=== PATIENT | male | born 1955 | race Caucasian/White ===

== ENCOUNTER → 2017-03-07 | Outpatient (CLI) | payer MEDICARE, MEDICAID ==
[2017-03-07 12:32] LABS: ALBUMIN 3.9 G/DL (3.2-4.5); CREATININE SERUM 2.98 MG/DL (0.60-1.30); PHOSPHORUS 4.8 MG/DL (2.3-4.7); POTASSIUM 4.3 MMOL/L (3.6-5.0)
== END ==
LOC: LAB 11:24
PROVIDERS: ATTEND Internal Medicine Nephrology
DX: N17.9 Acute kidney failure, unspecified (principal); N18.3 Chronic kidney disease, stage 3 (moderate)
CPT/HCPCS: 36415; 80069; 82550; 82570; 84300

== ENCOUNTER → 2017-05-08 | Outpatient (CLI) | payer MEDICARE, MEDICAID | LOC: LAB 09:44 | PROVIDERS: ATTEND Family Medicine | DX: E11.9 Type 2 diabetes mellitus without complications (principal) ==

== ENCOUNTER → 2017-05-08 | Outpatient (CLI) | payer MEDICARE, MEDICAID ==
[2017-05-08 10:06] LABS: BASOPHILS % (AUTO) 0 % (0-10); EOSINOPHILS # (AUTO) 0.3 10^3/uL (0.0-0.3); EOSINOPHILS % (AUTO) 4 % (0-10); LYMPHOCYTES # (AUTO) 2.4 X 10^3 (1.0-4.0); LYMPHOCYTES % (AUTO) 29 % (12-44); MEAN CORPUSCULAR HEMOGLOBIN 32 PG (25-34); MEAN CORPUSCULAR HGB CONC 33 G/DL (32-36); MEAN CORPUSCULAR VOLUME 96 FL (80-99); MEAN PLATELET VOLUME 11.6 FL (7.4-10.4); MONOCYTES # (AUTO) 0.6 X 10^3 (0.0-1.0); MONOCYTES % (AUTO) 7 % (0-12); NEUTROPHILS % (AUTO) 60 % (42-75); PLATELET COUNT 173 10^3/uL (130-400); RED CELL DISTRIBUTION WIDTH 13.2 % (10.0-14.5); WHITE BLOOD COUNT 8.3 10^3/uL (4.3-11.0)
[2017-05-08 10:48] LABS: ALBUMIN 4.2 GM/DL (3.2-4.5); CALCIUM 9.9 MG/DL (8.5-10.1); CREATININE SERUM 3.25 MG/DL (0.60-1.30); PHOSPHORUS 4.4 MG/DL (2.3-4.7); POTASSIUM 4.4 MMOL/L (3.6-5.0)
== END ==
LOC: LAB 09:48
PROVIDERS: ATTEND Internal Medicine Nephrology
DX: D47.2 Monoclonal gammopathy (principal); R06.00 Dyspnea, unspecified; R80.9 Proteinuria, unspecified; E11.9 Type 2 diabetes mellitus without complications
CPT/HCPCS: 36415; 80069; 83036; 85025

== ENCOUNTER → 2017-07-16 | Outpatient (CLI) | payer MEDICARE, MEDICAID | LOC: LAB 13:14 | PROVIDERS: ATTEND Family Medicine | DX: E11.29 Type 2 diabetes mellitus with other diabetic kidney complication (principal) ==

== ENCOUNTER → 2017-07-16 | Outpatient (CLI) | payer MEDICARE, MEDICAID ==
[2017-07-16 13:59] LABS: BASOPHILS % (AUTO) 0 % (0-10); EOSINOPHILS # (AUTO) 0.2 10^3/uL (0.0-0.3); EOSINOPHILS % (AUTO) 3 % (0-10); LYMPHOCYTES # (AUTO) 1.6 X 10^3 (1.0-4.0); LYMPHOCYTES % (AUTO) 25 % (12-44); MEAN CORPUSCULAR HEMOGLOBIN 32 PG (25-34); MEAN CORPUSCULAR HGB CONC 33 G/DL (32-36); MEAN CORPUSCULAR VOLUME 97 FL (80-99); MEAN PLATELET VOLUME 10.9 FL (7.4-10.4); MONOCYTES # (AUTO) 0.4 X 10^3 (0.0-1.0); MONOCYTES % (AUTO) 6 % (0-12); NEUTROPHILS # (AUTO) 4.3 X 10^3 (1.8-7.8); NEUTROPHILS % (AUTO) 66 % (42-75); PLATELET COUNT 180 10^3/uL (130-400); RED BLOOD COUNT 3.84 10^6/uL (4.35-5.85); RED CELL DISTRIBUTION WIDTH 13.4 % (10.0-14.5); WHITE BLOOD COUNT 6.5 10^3/uL (4.3-11.0)
[2017-07-16 14:22] LABS: ALBUMIN 3.8 GM/DL (3.2-4.5); CALCIUM 8.5 MG/DL (8.5-10.1); CREATININE SERUM 2.83 MG/DL (0.60-1.30); PHOSPHORUS 4.5 MG/DL (2.3-4.7); POTASSIUM 4.3 MMOL/L (3.6-5.0)
[2017-07-17 06:43] LABS: CALCIUM PARA THYROID HORMONE 8.4 mg/dL (8.5-10.5)
== END ==
LOC: LAB 13:21
PROVIDERS: ATTEND Internal Medicine Nephrology
DX: I12.9 Hypertensive chronic kidney disease with stage 1 through stage 4 chronic kidney disease, or unspecified chronic kidney disease (principal); N18.4 Chronic kidney disease, stage 4 (severe); E11.29 Type 2 diabetes mellitus with other diabetic kidney complication; R60.9 Edema, unspecified
CPT/HCPCS: 36415; 80069; 82306; 83970; 84550; 85025

== ENCOUNTER → 2017-10-07 | Outpatient (CLI) | payer MEDICARE, MEDICAID ==
[2017-10-07 11:21] LABS: BASOPHILS % (AUTO) 0 % (0-10); EOSINOPHILS # (AUTO) 0.2 10^3/uL (0.0-0.3); EOSINOPHILS % (AUTO) 4 % (0-10); LYMPHOCYTES # (AUTO) 1.7 X 10^3 (1.0-4.0); LYMPHOCYTES % (AUTO) 29 % (12-44); MEAN CORPUSCULAR HEMOGLOBIN 32 PG (25-34); MEAN CORPUSCULAR HGB CONC 33 G/DL (32-36); MEAN CORPUSCULAR VOLUME 97 FL (80-99); MEAN PLATELET VOLUME 10.8 FL (7.4-10.4); MONOCYTES # (AUTO) 0.4 X 10^3 (0.0-1.0); MONOCYTES % (AUTO) 7 % (0-12); NEUTROPHILS # (AUTO) 3.5 X 10^3 (1.8-7.8); NEUTROPHILS % (AUTO) 60 % (42-75); PLATELET COUNT 162 10^3/uL (130-400); RED BLOOD COUNT 4.05 10^6/uL (4.35-5.85); RED CELL DISTRIBUTION WIDTH 12.8 % (10.0-14.5); WHITE BLOOD COUNT 5.8 10^3/uL (4.3-11.0)
[2017-10-07 11:26] LABS: BILIRUBIN,URINE NEGATIVE (NEGATIVE); KETONES,URINE NEGATIVE (NEGATIVE); LEUKOCYTE ESTERASE ,URINE NEGATIVE (NEGATIVE); NITRITE,URINE NEGATIVE (NEGATIVE); PH,URINE 6 (5-9); PROTEIN,URINE 3+ (NEGATIVE); UROBILINOGEN,URINE NORMAL (NORMAL)
[2017-10-07 11:34] LABS: SQUAMOUS EPITHELIAL CELL,UR RARE /HPF; WBC,URINE RARE /HPF
[2017-10-07 11:41] LABS: CALCIUM 9.3 MG/DL (8.5-10.1); CREATININE SERUM 3.14 MG/DL (0.60-1.30); MAGNESIUM 2.3 MG/DL (1.8-2.4); PHOSPHORUS 4.2 MG/DL (2.3-4.7); POTASSIUM 4.4 MMOL/L (3.6-5.0)
[2017-10-07 11:54] LABS: PROTEIN/CREATININE RATIO 5.13
== END ==
LOC: LAB 10:50
PROVIDERS: ATTEND Internal Medicine Nephrology
DX: E11.29 Type 2 diabetes mellitus with other diabetic kidney complication (principal); N18.4 Chronic kidney disease, stage 4 (severe); R79.89 Other specified abnormal findings of blood chemistry; E55.9 Vitamin D deficiency, unspecified
CPT/HCPCS: 36415; 80069; 81000; 82306; 82570; 83036; 83735; 83970; 84156; 85025

== ENCOUNTER → 2017-10-07 | Outpatient (CLI) | payer MEDICARE, MEDICAID | LOC: LAB 10:47 | PROVIDERS: ATTEND Family Medicine | DX: E11.29 Type 2 diabetes mellitus with other diabetic kidney complication (principal); N18.4 Chronic kidney disease, stage 4 (severe) ==

== ENCOUNTER → 2018-01-20 | Outpatient (CLI) | payer MEDICARE, MEDICAID | LOC: LAB 09:56 | PROVIDERS: ATTEND Family Medicine | DX: E10.9 Type 1 diabetes mellitus without complications (principal) | CPT/HCPCS: 36415; 83036 ==

== ENCOUNTER → 2018-01-20 | Outpatient (CLI) | payer MEDICARE, MEDICAID ==
[2018-01-20 10:16] LABS: HEMOGLOBIN 12.5 G/DL (13.3-17.7); MEAN PLATELET VOLUME 10.7 FL (7.4-10.4); RED BLOOD COUNT 3.89 10^6/uL (4.35-5.85); RED CELL DISTRIBUTION WIDTH 13.1 % (10.0-14.5); WHITE BLOOD COUNT 6.6 10^3/uL (4.3-11.0)
[2018-01-20 10:21] LABS: BILIRUBIN,URINE NEGATIVE (NEGATIVE); CLARITY,URINE CLEAR; COLOR,URINE YELLOW; GLUCOSE, URINE (UA) 1+ (NEGATIVE); KETONES,URINE NEGATIVE (NEGATIVE); LEUKOCYTE ESTERASE ,URINE NEGATIVE (NEGATIVE); NITRITE,URINE NEGATIVE (NEGATIVE); PH,URINE 6 (5-9); PROTEIN,URINE 3+ (NEGATIVE); UROBILINOGEN,URINE NORMAL (NORMAL)
[2018-01-20 10:36] LABS: ALBUMIN 4.2 GM/DL (3.2-4.5); CALCIUM 8.9 MG/DL (8.5-10.1); CREATININE SERUM 3.02 MG/DL (0.60-1.30); MAGNESIUM 2.4 MG/DL (1.8-2.4); PHOSPHORUS 4.6 MG/DL (2.3-4.7); POTASSIUM 4.1 MMOL/L (3.6-5.0)
[2018-01-20 10:38] LABS: BACTERIA,URINE NEGATIVE /HPF; RBC,URINE 0-2 /HPF; SQUAMOUS EPITHELIAL CELL,UR 0-2 /HPF; WBC,URINE RARE /HPF
== END ==
LOC: LAB 09:58
PROVIDERS: ATTEND Internal Medicine Nephrology
DX: N18.4 Chronic kidney disease, stage 4 (severe) (principal); N40.0 Benign prostatic hyperplasia without lower urinary tract symptoms; E11.29 Type 2 diabetes mellitus with other diabetic kidney complication; E55.9 Vitamin D deficiency, unspecified
CPT/HCPCS: 36415; 80069; 81000; 82570; 83735; 83970; 84156; 85027

== ENCOUNTER → 2018-05-20 | Outpatient (CLI) | payer MEDICARE, MEDICAID ==
[2018-05-20 12:50] LABS: BASOPHILS % (AUTO) 0 % (0-10); EOSINOPHILS # (AUTO) 0.2 10^3/uL (0.0-0.3); EOSINOPHILS % (AUTO) 3 % (0-10); HEMATOCRIT 36 % (40-54); HEMOGLOBIN 11.9 G/DL (13.3-17.7); LYMPHOCYTES # (AUTO) 2.1 X 10^3 (1.0-4.0); LYMPHOCYTES % (AUTO) 28 % (12-44); MEAN CORPUSCULAR HEMOGLOBIN 32 PG (25-34); MEAN CORPUSCULAR HGB CONC 33 G/DL (32-36); MEAN CORPUSCULAR VOLUME 96 FL (80-99); MEAN PLATELET VOLUME 10.7 FL (7.4-10.4); MONOCYTES # (AUTO) 0.5 X 10^3 (0.0-1.0); MONOCYTES % (AUTO) 7 % (0-12); NEUTROPHILS # (AUTO) 4.5 X 10^3 (1.8-7.8); NEUTROPHILS % (AUTO) 62 % (42-75); PLATELET COUNT 187 10^3/uL (130-400); RED CELL DISTRIBUTION WIDTH 13.1 % (10.0-14.5); WHITE BLOOD COUNT 7.3 10^3/uL (4.3-11.0)
[2018-05-20 13:15] LABS: ALBUMIN 3.9 GM/DL (3.2-4.5); BILIRUBIN,TOTAL 0.4 MG/DL (0.1-1.0); CALCIUM 8.6 MG/DL (8.5-10.1); CREATININE SERUM 3.14 MG/DL (0.60-1.30); POTASSIUM 4.4 MMOL/L (3.6-5.0); TOTAL PROTEIN 7.3 GM/DL (6.4-8.2)
[2018-05-25 15:46] LABS: IMMUNOFIX PATH REPORT NUMBER Complete (Complete)
== END ==
LOC: LAB 12:04
PROVIDERS: ATTEND Internal Medicine Hematology & Oncology
DX: D47.2 Monoclonal gammopathy (principal)
CPT/HCPCS: 36415; 80053; 82784; 83883; 85025; 86334

== ENCOUNTER → 2018-07-28 | Outpatient (CLI) | payer MEDICARE, MEDICAID | LOC: LAB 10:09 | PROVIDERS: ATTEND Nurse Practitioner | DX: E11.29 Type 2 diabetes mellitus with other diabetic kidney complication (principal) | CPT/HCPCS: 36415; 83036 ==

== ENCOUNTER → 2018-07-28 | Outpatient (CLI) | payer MEDICARE, MEDICAID ==
[2018-07-28 10:32] LABS: BILIRUBIN,URINE NEGATIVE (NEGATIVE); CLARITY,URINE CLEAR; COLOR,URINE YELLOW; GLUCOSE, URINE (UA) 1+ (NEGATIVE); KETONES,URINE NEGATIVE (NEGATIVE); LEUKOCYTE ESTERASE ,URINE NEGATIVE (NEGATIVE); NITRITE,URINE NEGATIVE (NEGATIVE); PH,URINE 6.5 (5-9); PROTEIN,URINE 4+ (NEGATIVE); UROBILINOGEN,URINE NORMAL (NORMAL)
[2018-07-28 10:43] LABS: BACTERIA,URINE TRACE /HPF; SQUAMOUS EPITHELIAL CELL,UR 0-2 /HPF
[2018-07-28 11:01] LABS: BASOPHILS % (AUTO) 0 % (0-10); EOSINOPHILS # (AUTO) 0.2 10^3/uL (0.0-0.3); EOSINOPHILS % (AUTO) 3 % (0-10); HEMATOCRIT 37 % (40-54); HEMOGLOBIN 12.2 G/DL (13.3-17.7); LYMPHOCYTES # (AUTO) 1.8 X 10^3 (1.0-4.0); LYMPHOCYTES % (AUTO) 28 % (12-44); MEAN CORPUSCULAR HEMOGLOBIN 32 PG (25-34); MEAN CORPUSCULAR HGB CONC 33 G/DL (32-36); MEAN CORPUSCULAR VOLUME 97 FL (80-99); MEAN PLATELET VOLUME 11.6 FL (7.4-10.4); MONOCYTES # (AUTO) 0.5 X 10^3 (0.0-1.0); MONOCYTES % (AUTO) 7 % (0-12); NEUTROPHILS # (AUTO) 3.9 X 10^3 (1.8-7.8); NEUTROPHILS % (AUTO) 62 % (42-75); PLATELET COUNT 167 10^3/uL (130-400); RED BLOOD COUNT 3.85 10^6/uL (4.35-5.85); WHITE BLOOD COUNT 6.3 10^3/uL (4.3-11.0)
[2018-07-28 11:21] LABS: ALBUMIN 4.2 GM/DL (3.2-4.5); CALCIUM 8.8 MG/DL (8.5-10.1); CREATININE SERUM 4.04 MG/DL (0.60-1.30); MAGNESIUM 2.8 MG/DL (1.8-2.4); PHOSPHORUS 4.8 MG/DL (2.3-4.7); POTASSIUM 5.1 MMOL/L (3.6-5.0)
== END ==
LOC: LAB 10:12
PROVIDERS: ATTEND Internal Medicine Nephrology
DX: E11.649 Type 2 diabetes mellitus with hypoglycemia without coma (principal); N18.4 Chronic kidney disease, stage 4 (severe); R42 Dizziness and giddiness
CPT/HCPCS: 36415; 80069; 81000; 82306; 82570; 83735; 83970; 84156; 85025

== ENCOUNTER → 2018-09-02 | Outpatient (CLI) | payer MEDICARE, MEDICAID ==
[2018-09-02 15:16] LABS: HEMOGLOBIN 11.6 G/DL (13.3-17.7); MEAN PLATELET VOLUME 11.4 FL (7.4-10.4); RED BLOOD COUNT 3.82 10^6/uL (4.35-5.85); RED CELL DISTRIBUTION WIDTH 12.7 % (10.0-14.5); WHITE BLOOD COUNT 6.9 10^3/uL (4.3-11.0)
[2018-09-02 15:20] LABS: BILIRUBIN,URINE NEGATIVE (NEGATIVE); CLARITY,URINE CLEAR; COLOR,URINE YELLOW; GLUCOSE, URINE (UA) 2+ (NEGATIVE); KETONES,URINE NEGATIVE (NEGATIVE); LEUKOCYTE ESTERASE ,URINE NEGATIVE (NEGATIVE); NITRITE,URINE NEGATIVE (NEGATIVE); PH,URINE 6.5 (5-9); PROTEIN,URINE 3+ (NEGATIVE); UROBILINOGEN,URINE NORMAL (NORMAL)
[2018-09-02 15:32] LABS: CALCIUM 9.2 MG/DL (8.5-10.1); CREATININE SERUM 4.06 MG/DL (0.60-1.30); MAGNESIUM 2.7 MG/DL (1.8-2.4); PHOSPHORUS 4.7 MG/DL (2.3-4.7); POTASSIUM 4.5 MMOL/L (3.6-5.0)
[2018-09-02 16:18] LABS: BACTERIA,URINE NEGATIVE /HPF; RBC,URINE RARE /HPF; WBC,URINE RARE /HPF
[2018-09-03 07:46] LABS: HEPATITIS C ANTIBODY C Non-Reactive (Non-Reactive)
== END ==
LOC: LAB 14:53
PROVIDERS: ATTEND Internal Medicine Nephrology
DX: R53.83 Other fatigue (principal); E11.649 Type 2 diabetes mellitus with hypoglycemia without coma; N18.5 Chronic kidney disease, stage 5; D47.2 Monoclonal gammopathy; E21.1 Secondary hyperparathyroidism, not elsewhere classified
CPT/HCPCS: 36415; 80069; 80074; 81000; 82570; 83735; 84156; 85027; 86704

== ENCOUNTER → 2019-12-15 | Outpatient (CLI) | payer MEDICARE, MEDICAID ==
[2019-12-15 09:56] LABS: CHOLESTEROL 134 MG/DL (< 200); HDL CHOLESTEROL 41 MG/DL (40-60); TRIGLYCERIDES 57 MG/DL (<150); VLDL CHOLESTEROL 11 MG/DL (5-40)
== END ==
LOC: LAB 09:18
PROVIDERS: ATTEND Nurse Practitioner
DX: E78.2 Mixed hyperlipidemia (principal); E11.22 Type 2 diabetes mellitus with diabetic chronic kidney disease
CPT/HCPCS: 36415; 80061; 83036

== ENCOUNTER → 2020-04-04 | Outpatient (CLI) | payer MEDICARE, MEDICAID ==
--- NOTE | 2020-04-04 14:00 | Diagnostic Imaging Report ---
EXAMINATION: PA and lateral chest at 1:44 PM. INDICATION: Shortness of breath, COPD, and cough. COMPARISON: There are no prior studies available for comparison. FINDINGS: The heart size is at the upper limits of normal. There are coarse perihilar markings bilaterally. These findings are more likely to be chronic in nature than due to pneumonia or pulmonary edema. Even so, if previous exams are available, they would be helpful for comparison. On the PA view, there is a small 5 mm area of increased density along the periphery of the left upper lung. There is no corresponding abnormality seen on the lateral view and this finding may merely be secondary to superimposition. The possibility that this is a parenchymal lung nodule should also be considered. There is no significant pleural effusion identified. The mediastinum is not widened. The osseous structures are intact. IMPRESSION: 1. The coarse perihilar markings are more likely to be chronic in nature than due to an acute abnormality; however, if there are no prior exams available for comparison, then a followup PA and lateral chest would be recommended. 2. The small density along the periphery of the left upper lung could also be further evaluated either by comparison to prior exams or a followup study. Dictated by: Dictated on workstation # [id number]
== END ==
LOC: RAD 13:18
PROVIDERS: ATTEND Nurse Practitioner
DX: J44.1 Chronic obstructive pulmonary disease with (acute) exacerbation (principal); G47.09 Other insomnia; J98.4 Other disorders of lung
CPT/HCPCS: 71046

== ENCOUNTER → 2020-04-12 | Outpatient (CLI) | payer MEDICARE, MEDICAID ==
--- NOTE | 2020-04-12 11:06 | Diagnostic Imaging Report ---
INDICATION: COPD and left lung nodule. TIME OF EXAM: 11:05 AM. COMPARISON: 04/04/2020. FINDINGS: The heart size is stable. The left upper lobe nodule is stable. No infiltrates are detected. There is some scarring or atelectasis in the left base near the costophrenic angle. There is no effusion. There is no pneumothorax. IMPRESSION: 1. Left basilar subsegmental atelectasis or scarring. 2. Left upper lobe pulmonary nodule, perhaps a granuloma. Serial chest radiographs with repeat study in 6 months is recommended to confirm stability. Dictated by: Dictated on workstation # [id number]
== END ==
LOC: LAB 10:45
PROVIDERS: ATTEND Nurse Practitioner
DX: J44.1 Chronic obstructive pulmonary disease with (acute) exacerbation (principal); R91.1 Solitary pulmonary nodule
CPT/HCPCS: 71046

== ENCOUNTER → 2020-04-24 | Outpatient (CLI) | payer MEDICARE, MEDICAID ==
--- NOTE | 2020-04-24 13:06 | Diagnostic Imaging Report ---
EXAMINATION: CT Chest without contrast. TECHNIQUE: Multiple contiguous axial images were obtained through the chest without the use of intravenous contrast. All CT scans use one or more of the following dose optimizing techniques: automated exposure control, MA and/or KvP adjustment based on a patient size and exam type, or iterative reconstruction. HISTORY: Pulmonary nodule. COMPARISON: Radiograph dated 04/12/2020. FINDINGS: There is no edema or pneumonia. No pleural effusion. No pneumothorax. No suspicious nodules. The nodule seen on radiography is a calcified granuloma in the left upper lobe. There is bronchial wall thickening in the left lower lobe with volume loss suggestive of bronchitis. Heart size is normal. There are moderate coronary artery calcifications. No pericardial effusion. Aorta is normal in caliber. There is no axillary or supraclavicular lymphadenopathy. There is no mediastinal lymphadenopathy. Limited views of the upper abdomen are unremarkable. There are no suspicious osseus lesions. IMPRESSION: 1. The left upper lobe nodule is calcified granuloma, a benign finding for which no further follow-up is required. 2. Bronchial wall thickening in the left lower lobe is suggestive of bronchitis. Dictated by: Dictated on workstation # [id number]
== END ==
LOC: RAD 11:56
PROVIDERS: ATTEND Nurse Practitioner
DX: J84.10 Pulmonary fibrosis, unspecified (principal); J98.09 Other diseases of bronchus, not elsewhere classified; R91.1 Solitary pulmonary nodule
CPT/HCPCS: 71250

== ENCOUNTER → 2020-08-10 | Outpatient (CLI) | payer MEDICARE, MEDICAID ==
--- NOTE | 2020-08-10 13:51 | Diagnostic Imaging Report ---
INDICATION: Low back pain and right hip pain. TIME OF EXAM: 12:39 PM 2 views right hip were obtained. The femoral acetabular alignment is normal. Joint spaces well-maintained. Femoral head and neck are intact. No fractures are seen. IMPRESSION: No acute bony abnormality is detected. Dictated by: Dictated on workstation # [id number]
--- NOTE | 2020-08-10 13:58 | Diagnostic Imaging Report ---
INDICATION: Chronic low back pain. TIME OF EXAM: 12:41 PM AP, lateral and both oblique views of the lumbar spine were obtained. Curvature and alignment are normal. Vertebral body heights are well-maintained. No acute compression fracture is seen. There is multilevel degenerative disc disease with variable disc space narrowing and marginal spurring. There is multilevel facet arthropathy. No spondylolysis or spondylolisthesis is seen. Aorta is heavily calcified. IMPRESSION: Lumbar spondylosis. No acute bony abnormality is detected. Dictated by: Dictated on workstation # [id number]
== END ==
LOC: RAD 12:06
PROVIDERS: ATTEND Nurse Practitioner
DX: M47.816 Spondylosis without myelopathy or radiculopathy, lumbar region (principal)
CPT/HCPCS: 72110; 73502

== ENCOUNTER → 2020-09-21 | Outpatient (CLI) | payer MEDICARE, MEDICAID ==
--- NOTE | 2020-09-21 15:04 | Diagnostic Imaging Report ---
PROCEDURE: US Venous Lower Ext Kain. TECHNIQUE: Multiple real-time grayscale images were obtained over the lower extremities in various projections, bilaterally. Additional duplex Doppler and color Doppler images were also obtained. INDICATION: Bilateral lower extremity pain and swelling. FINDINGS: There is no evidence of right or left lower extremity DVT. Both lower extremity deep venous systems show normal compressibility with normal response to augmentation and Valsalva. No fluid collection or mass is detected. IMPRESSION: No evidence of right or left lower extremity DVT. Dictated by: Dictated on workstation # [id number]
--- NOTE | 2020-09-21 15:42 | Diagnostic Imaging Report ---
INDICATION: Restless leg syndrome. EXAMINATION: Ankle-brachial indices. FINDINGS: Pressure was recorded in the brachial artery and in the posterior tibial and dorsalis pedis of both ankles. CHELSEA on the right is greater than 1. CHELSEA on the left is greater than 1. IMPRESSION: Normal ankle-brachial indices. Dictated by: Dictated on workstation # [id number]
== END ==
LOC: CARD 12:48
PROVIDERS: ATTEND Nurse Practitioner
DX: G25.81 Restless legs syndrome (principal); R60.0 Localized edema
CPT/HCPCS: 93306; 93922; 93970

== ENCOUNTER 2020-11-08 12:37 | Emergency (ER) | payer MEDICARE, MEDICAID ==
[~2020-11-08] VITALS: Ht 175 cm; Wt 127.0 kg
[2020-11-08 12:52] LABS: BASOPHILS % (AUTO) 0 % (0-10); EOSINOPHILS # (AUTO) 0.2 10^3/uL (0.0-0.3); EOSINOPHILS % (AUTO) 3 % (0-10); HEMATOCRIT 31 % (40-54); HEMOGLOBIN 9.7 g/dL (13.3-17.7); LYMPHOCYTES # (AUTO) 1.7 10^3/uL (1.0-4.0); LYMPHOCYTES % (AUTO) 23 % (12-44); MEAN CORPUSCULAR HEMOGLOBIN 32 pg (25-34); MEAN CORPUSCULAR HGB CONC 32 g/dL (32-36); MEAN CORPUSCULAR VOLUME 102 fL (80-99); MEAN PLATELET VOLUME 11.5 fL (9.0-12.2); MONOCYTES # (AUTO) 0.6 10^3/uL (0.0-1.0); MONOCYTES % (AUTO) 8 % (0-12); NEUTROPHILS % (AUTO) 66 % (42-75); PLATELET COUNT 155 10^3/uL (130-400); WHITE BLOOD COUNT 7.5 10^3/uL (4.3-11.0)
--- NOTE | 2020-11-08 13:03 | ED Cardiac General ---
History of Present Illness General Chief Complaint: Cardiac/General Problems Stated Complaint: AFIB,FATIGUE Source: patient Exam Limitations: no limitations History of Present Illness Date Seen by Provider: Nov 08, 2020 Time Seen by Provider: 13:03 Initial Comments This is a 65 yo male who presents to the ER via EMS with report of new onset a- fib, rate controlled per his PCP office. Upon arrival he had no complaints other than fatigue. States he has had some low BP readings at home of 120's/60's but no other issues. Denies chest pain, cough, shortness of breath, nausea/vomit ing/diarrhea, or abdominal pain. States he does peritoneal dialysis 3x a day at home and had to miss his first treatment to come ER. Allergies and Home Medications Allergies Coded Allergies: cephalexin (Verified Allergy, Unknown, hives, 11/08/20) Home Medications Apixaban 5 Mg Tablet, 5 MG PO BID Prescribed by: JAIDEN ANDERSON on 11/08/20 1422 Patient Home Medication List Home Medication List Reviewed: Yes Review of Systems Review of Systems Constitutional: No dizziness, No fever; malaise; No weakness EENTM: No Symptoms Reported Respiratory: Cough (chronic) Cardiovascular: No Symptoms Reported Gastrointestinal: No Symptoms Reported Genitourinary: No Symptoms Reported Musculoskeletal: no symptoms reported Skin: no symptoms reported Psychiatric/Neurological: No Symptoms Reported Endocrine: No Symptoms Reported Hematologic/Lymphatic: No Symptoms Reported Physical Exam Vital Signs Vital Signs - First Documented 11/08/20 12:39 Temp 36.2 Pulse 94 Resp 20 B/P (MAP) 156/102 (120) Pulse Ox 100 O2 Delivery Nasal Cannula O2 Flow Rate 2.00 Capillary Refill : NONE Height, Weight, BMI Height: '" Weight: lbs. oz. kg; BMI Method: General Appearance: No Apparent Distress, WD/WN HEENT: PERRL/EOMI, Pharynx Normal, Moist Mucous Membranes Neck: Full Range of Motion, Normal Inspection, Supple Respiratory: Chest Non Tender, Lungs Clear, Normal Breath Sounds, No Accessory Muscle Use Cardiovascular: No No Gallop, No No JVD; Normal Peripheral Pulses, Irregularly Irregular Gastrointestinal: Normal Bowel Sounds, Non Tender, Soft Extremity: Normal Capillary Refill, Normal Inspection, Normal Range of Motion, Pedal Edema (2+ BLE ) Neurologic/Psychiatric: Alert, Oriented x3, No Motor/Sensory Deficits, Normal Mood/Affect Skin: Normal Color, Warm/Dry Progress/Results/Core Measures Results/Orders Lab Results Laboratory Tests Test 11/08/20 12:45 Range/Units White Blood Count 7.5 4.3-11.0 10^3/uL Red Blood Count 3.01 L 4.30-5.52 10^6/uL Hemoglobin 9.7 L 13.3-17.7 g/dL Hematocrit 31 L 40-54 % Mean Corpuscular Volume 102 H 80-99 fL Mean Corpuscular Hemoglobin 32 25-34 pg Mean Corpuscular Hemoglobin Concent 32 32-36 g/dL Red Cell Distribution Width 12.6 10.0-14.5 % Platelet Count 155 130-400 10^3/uL Mean Platelet Volume 11.5 9.0-12.2 fL Immature Granulocyte % (Auto) 0 % Neutrophils (%) (Auto) 66 42-75 % Lymphocytes (%) (Auto) 23 12-44 % Monocytes (%) (Auto) 8 0-12 % Eosinophils (%) (Auto) 3 0-10 % Basophils (%) (Auto) 0 0-10 % Neutrophils # (Auto) 5.0 1.8-7.8 10^3/uL Lymphocytes # (Auto) 1.7 1.0-4.0 10^3/uL Monocytes # (Auto) 0.6 0.0-1.0 10^3/uL Eosinophils # (Auto) 0.2 0.0-0.3 10^3/uL Basophils # (Auto) 0.0 0.0-0.1 10^3/uL Immature Granulocyte # (Auto) 0.0 0.0-0.1 10^3/uL Sodium Level 139 135-145 MMOL/L Potassium Level 4.0 3.6-5.0 MMOL/L Chloride Level 100 98-107 MMOL/L Carbon Dioxide Level 32 21-32 MMOL/L Anion Gap 7 5-14 MMOL/L Blood Urea Nitrogen 92 H 7-18 MG/DL Creatinine 6.51 H 0.60-1.30 MG/DL Estimat Glomerular Filtration Rate 9 BUN/Creatinine Ratio 14 Glucose Level 73 70-105 MG/DL Calcium Level 8.1 L 8.5-10.1 MG/DL Corrected Calcium 8.4 L 8.5-10.1 MG/DL Magnesium Level 2.5 H 1.6-2.4 MG/DL Total Bilirubin 0.3 0.1-1.0 MG/DL Aspartate Amino Transf (AST/SGOT) 15 5-34 U/L Alanine Aminotransferase (ALT/SGPT) 17 0-55 U/L Alkaline Phosphatase 67 40-136 U/L Total Protein 7.1 6.4-8.2 GM/DL Albumin 3.6 3.2-4.5 GM/DL TSH [place] Testing 2.52 0.35-4.94 UIU/ML Vital Signs/I&O 11/08/20 11/08/20 12:39 14:50 Temp 36.2 Pulse 94 93 Resp 20 20 B/P (MAP) 156/102 (120) 151/88 (120) Pulse Ox 100 100 O2 Delivery Nasal Cannula O2 Flow Rate 2.00 2.00 Progress Progress Note : Progress Note New onset A-fib, rate controlled at 84 bpm. Only symptom reported is fatigue. Discussed case with Dr. 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 Discussed with RN at [facility], and reported assistant offset press operator ok with starting Eliquis 5mg PO BID. Patient to have follow up with Dr. Gonzales on Friday11/10/20. Reviewed discharge plan with him and he is agreeable with plan. Initial ECG Impression Date: Nov 08, 2020 Initial ECG Impression Time: 12:48 Initial ECG Rate: 84 Initial ECG Rhythm: A Fib/Flutter Departure Communication (Admissions) Time/Spoke to Consulting Phy: 14:[address] 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 Called [facility] and spoke to RN regarding adding Eliquis 5mg BID. Returned call, stating assistant offset press operator was ok with starting Eliquis at this dose. Impression Primary Impression: New onset a-fib Disposition: 01 HOME, SELF-CARE Condition: Stable/Unchanged Departure-Patient Inst. Decision time for Depature: 14:10 Referrals: [facility] Primary Care Physician CHARLIE SALES APRN (Family) Primary Care Physician Patient Instructions: Atrial Fibrillation Add. Discharge Instructions: Plan: 1. Discharge home. 2. Continue your dialysis as previously directed. 3. Take Eliquis 5mg by mouth twice a day. 4. Follow up with Dr. Gonzales on FridayNovember 10 at 12:45pm. His office is located right next to the hospital. 5. Return to ER for new or concerning symptoms. All discharge instructions reviewed with patient and/or family. Voiced understanding. Scripts Apixaban (Eliquis) 5 Mg Tablet 5 MG PO BID for 30 Days, #60 TAB 0 Refills Prov: JAIDEN ANDERSON NIGHT SUPERVISOR 11/08/20 Copy Copies To 1: AFSHAN GONZALES MD FACP FACC CCDS JAIDEN ANDERSON NIGHT SUPERVISOR Nov 08, 2020 13:03
[2020-11-08 13:08] LABS: ALBUMIN 3.6 GM/DL (3.2-4.5)
[2020-11-08 13:09] LABS: CALCIUM 8.1 MG/DL (8.5-10.1)
[2020-11-08 13:11] LABS: TOTAL PROTEIN 7.1 GM/DL (6.4-8.2)
--- NOTE | 2020-11-08 13:11 | ED Cardiac General ---
History of Present Illness General Chief Complaint: Cardiac/General Problems Stated Complaint: AFIB,FATIGUE History of Present Illness Date Seen by Provider: Nov 08, 2020 Time Seen by Provider: 13:50 Initial Comments 65 y/o M presents to Emergency Department by EMS. Pt states Dr. Pierre at [facility] sent him over because pt was in A. Fib and his bp was fluctuating up and down. Pt states he can't walk as far before needing to catch his breath and his legs begin to hurt. Previous pt was able to walk around [employer] without effort. Pt denies a history of A. Fib. Pt admits to his bp dropping before but would always come back up. Pt denies previous occurrences of 2 drops in bp. Pt has mild leg swelling and a cough but denies pain, lightheadedness, troubles with vision or hearing, or cough. Pt has mild leg swelling. Pt had a sonogram of his heart a couple of months ago. BP taken in ED is 128/105 but has been fluctuating. PMHx: CAD, HTN, DM, CKD, edema, COPD, chemical lungs PSHx: lung biopsy, gallbladder removal FamHx: cancer, DM, hear attacks, fibromyalgia Meds: see list allergy to meds: keflex (hives), bp medication unspecified (leg swelling) (RC SINGH STUDENT) Allergies and Home Medications Allergies Coded Allergies: cephalexin (Verified Allergy, Unknown, hives, 11/08/20) Review of Systems Review of Systems Constitutional: No fever; weakness EENTM: No Blurred Vision, No Double Vision, No Ear Pain Respiratory: Cough Cardiovascular: Denies Chest Pain; Edema; Denies Lightheadedness Gastrointestinal: Denies Abdominal Pain (RC SINGH STUDENT) Past Scqpykm-Jgolvu-Tqdodi Hx Patient Social History Alcohol Use: Denies Use (RC SINGH STUDENT) Physical Exam Vital Signs Vital Signs - First Documented 11/08/20 12:39 Temp 36.2 Pulse 94 Resp 20 B/P (MAP) 156/102 (120) Pulse Ox 100 O2 Delivery Nasal Cannula O2 Flow Rate 2.00 () Vital Signs Capillary Refill : NONE (RC SINGH STUDENT) Height, Weight, BMI Height: '" Weight: lbs. oz. kg; BMI Method: (RC SINGH MED STUDENT) Progress/Results/Core Measures Results/Orders Lab Results Laboratory Tests Test 11/08/20 12:45 Range/Units White Blood Count 7.5 4.3-11.0 10^3/uL Red Blood Count 3.01 L 4.30-5.52 10^6/uL Hemoglobin 9.7 L 13.3-17.7 g/dL Hematocrit 31 L 40-54 % Mean Corpuscular Volume 102 H 80-99 fL Mean Corpuscular Hemoglobin 32 25-34 pg Mean Corpuscular Hemoglobin Concent 32 32-36 g/dL Red Cell Distribution Width 12.6 10.0-14.5 % Platelet Count 155 130-400 10^3/uL Mean Platelet Volume 11.5 9.0-12.2 fL Immature Granulocyte % (Auto) 0 % Neutrophils (%) (Auto) 66 42-75 % Lymphocytes (%) (Auto) 23 12-44 % Monocytes (%) (Auto) 8 0-12 % Eosinophils (%) (Auto) 3 0-10 % Basophils (%) (Auto) 0 0-10 % Neutrophils # (Auto) 5.0 1.8-7.8 10^3/uL Lymphocytes # (Auto) 1.7 1.0-4.0 10^3/uL Monocytes # (Auto) 0.6 0.0-1.0 10^3/uL Eosinophils # (Auto) 0.2 0.0-0.3 10^3/uL Basophils # (Auto) 0.0 0.0-0.1 10^3/uL Immature Granulocyte # (Auto) 0.0 0.0-0.1 10^3/uL Sodium Level 139 135-145 MMOL/L Potassium Level 4.0 3.6-5.0 MMOL/L Chloride Level 100 98-107 MMOL/L Carbon Dioxide Level 32 21-32 MMOL/L Anion Gap 7 5-14 MMOL/L Blood Urea Nitrogen 92 H 7-18 MG/DL Creatinine 6.51 H 0.60-1.30 MG/DL Estimat Glomerular Filtration Rate 9 BUN/Creatinine Ratio 14 Glucose Level 73 70-105 MG/DL Calcium Level 8.1 L 8.5-10.1 MG/DL Corrected Calcium 8.4 L 8.5-10.1 MG/DL Magnesium Level 2.5 H 1.6-2.4 MG/DL Total Bilirubin 0.3 0.1-1.0 MG/DL Aspartate Amino Transf (AST/SGOT) 15 5-34 U/L Alanine Aminotransferase (ALT/SGPT) 17 0-55 U/L Alkaline Phosphatase 67 40-136 U/L Total Protein 7.1 6.4-8.2 GM/DL Albumin 3.6 3.2-4.5 GM/DL (ANTONINO CAMARILLO) Vital Signs/I&O 11/08/20 12:39 Temp 36.2 Pulse 94 Resp 20 B/P (MAP) 156/102 (120) Pulse Ox 100 O2 Delivery Nasal Cannula O2 Flow Rate 2.00 (ANTONINO CAMARILLO) Departure Departure-Patient Inst. [facility]) Primary Care Physician CHARLIE PIERRE APRN (Family) Primary Care Physician RC SINGH MED STUDENT Nov 08, 2020 13:11 ANTONINO CAMARILLO Nov 08, 2020 13:28
[2020-11-08 13:12] LABS: BILIRUBIN,TOTAL 0.3 MG/DL (0.1-1.0)
[2020-11-08 13:14] LABS: CREATININE SERUM 6.51 MG/DL (0.60-1.30)
[2020-11-08 13:17] LABS: MAGNESIUM 2.5 MG/DL (1.6-2.4)
[2020-11-08 13:38] LABS: TSH (THYROID ANALYZER) 2.52 UIU/ML (0.35-4.94)
[2020-11-08] MEDS ORDERED: APIX5TAB PO (14:22)
--- NOTE | 2020-11-08 14:45 | NUR ---
SPOKE [facility] TO CHECK FOR PT COAT AND HAT. NONE LEFT W PT IN ED. PT AWAITING RIDE HOME W BROTHER.
[2020-11-08 14:50] VITALS: BP 151/88
== END 2020-11-08 15:22 | disposition home or self-care (01) ==
LOC: EDUNIT# 12:37 → ER 12:40
DX: I48.91 Unspecified atrial fibrillation (principal); Z88.1 Allergy status to other antibiotic agents; Z99.2 Dependence on renal dialysis
CPT/HCPCS: 36415; 80053; 83735; 84443; 85025; 93005; 93041

== ENCOUNTER → 2020-11-15 | Outpatient (CLI) | payer MEDICARE, MEDICAID ==
[~2020-11-15] MED LIST: APIX5TAB PO
== END ==
LOC: CARD 10:51
PROVIDERS: ATTEND Internal Medicine Cardiovascular Disease
DX: I48.0 Paroxysmal atrial fibrillation (principal)
CPT/HCPCS: 93225; 93226

== ENCOUNTER → 2020-11-17 | Outpatient (CLI) | payer MEDICARE, MEDICAID ==
[~2020-11-17] VITALS: Ht 175 cm; Wt 128.0 kg
[~2020-11-17] MED LIST changes: +CATHETER FLUSH 10 ML SYR IV PRN; +REGADENOSON 0.4 MG/5 ML SYR (LEXISCAN) IV ONE
[2020-11-17 08:56] VITALS: BP 149/77
== END ==
LOC: CARD 08:15
PROVIDERS: ATTEND Internal Medicine Cardiovascular Disease
DX: R06.09 Other forms of dyspnea (principal)
CPT/HCPCS: 78452; A9502

== ENCOUNTER 2021-11-05 11:11 | Emergency (ER) | payer MEDICARE, MEDICAID ==
[~2021-11-05] VITALS: Ht 177 cm; Wt 158.0 kg
[~2021-11-05 11:11] MED LIST changes: -CATHETER FLUSH 10 ML SYR IV PRN; -REGADENOSON 0.4 MG/5 ML SYR (LEXISCAN) IV ONE
[2021-11-05] MEDS ORDERED: EPINEPHrine 0.1 MG/ML 10 ML (HOSPIRA) SYR INJ ONE (11:12)
[2021-11-05] MEDS ORDERED: CATHETER FLUSH 10 ML SYR IV ONE (11:12)
[2021-11-05] MEDS ORDERED: SODIUM BICARB 8.4% 50 MEQ/50 ML (ABBOTT) SYR INJ ONE (11:12)
[2021-11-05] MEDS ORDERED: CALCIUM CHLORIDE 1 GM/10 ML (IMS) SYR INJ ONE (11:12)
--- NOTE | 2021-11-05 11:40 | ED CPR ---
HPI-CPR General Chief Complaint: Code Blue Stated Complaint: CODE Nursing Triage Note: Pt here from [facility], CPR in progress, combi tube in place. IO in place L lower leg. Pt was reportedly heading to dialysis this morning when he collapsed in driveway. 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 EMS reports receiving initial call at 1003. CPR started by fire upon arrival to scene. Abrasions noted to L side of face, bleeding controlled. Source of Information: EMS Exam Limitations: Physical Impairments History of Present Illness Date Seen by Provider: Nov 05, 2021 Time Seen by Provider: 11:12 Initial Comments Patient is a 66-year-old male who presents to the emergency department "CODE BLUE" by EMS. He resides in [facility]. Reportedly the patient was going out to his car to go to dialysis this morning when he collapsed in his driveway. It appears as though he landed on the left side of his face. EMS reports that the fire department was less than 2 blocks away. Relative short amount of time before CPR. Patient had no pulse no spontaneous respirations upon EMS arrival. Airway was placed with a Combitube. The automatic external compressor was placed. Patient had a total of 6 mg of epinephrine prior to arrival. He had a right tibia intraosseous line. EMS was not able to provide any further history. They did state that he vomited quite a bit on attempt at intubation. Past medical family social history unobtainable secondary to critical state, no associated family members present. Initial Complaints: Collapsed Witnessed Arrest: Yes Bystander CPR: Yes Down-Time Before ACLS: 5-10 min Paramedics Initial Findings: No Pulse, No Respirations Pre Hospital Treatment: Bag Valve Mask, CPR/Thumper, Intubation (combitube), Oxygen, Epinephrine (mg) (x6) Allergies and Home Medications Allergies Coded Allergies: cephalexin (Verified Allergy, Unknown, hives, 11/08/20) Patient Home Medication List Home Medication List Reviewed: Yes Apixaban (Eliquis) 5 Mg Tablet, 5 MG PO BID Prescribed by: JAIDEN ANDERSON on 11/08/20 1672 Review of Systems Review of Systems Constitutional: see HPI Other Comments Unable to obtain review of systems secondary to unresponsiveness Past Esoisoe-Gwcqon-Tfkzdj Hx Past Medical History Surgeries: Yes (DIALYSISS) Respiratory: Yes Sleep Apnea, COPD Cardiac: Yes (CHF) High Cholesterol, Hypertension Genitourinary: Yes Renal Failure Gastrointestinal: Yes Musculoskeletal: No Endocrine: Yes Hypothyroidsim, Diabetes, Non-Insulin dep HEENT: No Cancer: No Psychosocial: No Physical Exam Vital Signs Capillary Refill : Height, Weight, BMI Height: '" Weight: lbs. oz. kg; 50.00 BMI Method: General Appearance: Obese HEENT: Other (pupils 3mm and unreactive; Significant abrasion/avulsion of the skin of the left side of the face. no current active bleeding some linear lacerations through subcutaneous tissue overlying the cheek. bruising extends up to the forehead; no javed sign) Neck: Other (short neck - impossible to place cervical collar) Respiratory: Other (dimiinished BS left; good BS on right with bagging) Cardiovascular: Other (no pulse throughout) Extremity: Other (no obvious external trauma/deformity) Neurologic/Psychiatric: Other (unresponsive) Skin: Cool, Other (facial cyanosis) Progress/Results/Core Measures Results/Orders Lab Results Laboratory Tests Test 11/05/21 11:23 Range/Units Glucometer 184 H 70-110 MG/DL My Orders Orders - BRAVO PAUL MD Calcium Chloride 10% Injection (Calcium (11/05/21 11:12) Epinephrine Emergency Syringe (Epinephr (11/05/21 11:12) Sodium Bicarbonate 8.4% Syr (Sodium Bica (11/05/21 11:12) Sodium Chloride Flush (Catheter Flush Sy (11/05/21 11:12) Progress Progress Note #1: Time: 11:52 Progress Note 66-year-old male presents cardiac arrest. 6 mg of epinephrine had been administered prior to arrival, Combitube for airway placement. On EMS arrival at 11:12 AM patient appeared cyanotic obvious traumatic injury to the left face. Automatic external chest compressor in place. Patient was noted to be end- stage renal failure on hemodialysis. 1 amp of calcium was given. Patient did have an end-tidal of 27. At 1117 another milligram of epi was given. No pulse. CPR continued. At 1119 Combitube was exchanged for a 7.5 ET tube. I could auscultate breath sounds on the right not very well on the left. Another milligram of epinephrine was given at 1120 followed by bicarb. CPR continued again no pulse. 1124 last milligram of epinephrine given OG tube was placed. 1125 pulse checked, CPR discontinued on 1127. Prior to discontinuation of CPR I spoke with staff in attendance asked for any other suggestions, at this time the patient had been down since 10:03 AM. No further interventions were recommended or observed to be needed by staff and myself. Time of was called at 1127. Progress Note #2: Time: 13:57 Progress Note DIscussed with Aneudy Pearson NP the patient's primary care provider. We will notify the clinical business analyst to sign the certificate as he cannnot sign. Progress Note #3: Time: 14:00 Progress Note I notified the clinical business analyst Departure Impression Primary Impression: Cardiac arrest Additional Impressions: ESRD (end stage renal disease) on dialysis Chronic anticoagulation Facial trauma Qualified Codes: S09.93XA - Unspecified injury of face, initial encounter Head trauma Qualified Codes: S09.90XA - Unspecified injury of head, initial encounter Disposition: 20 Condition: Departure-Patient Inst. [facility] Primary Care Physician CHARLIE SALES APRN (Family) Primary Care Physician Copy Copies To 1: MIGUEL GOLDSTEIN KATHRYN M MD Nov 05, 2021 11:40
== END 2021-11-05 19:00 | disposition expired ==
LOC: ER 11:11
DX: S09.90XA Unspecified injury of head, initial encounter (principal); I46.9 Cardiac arrest, cause unspecified; I12.0 Hypertensive chronic kidney disease with stage 5 chronic kidney disease or end stage renal disease; E11.22 Type 2 diabetes mellitus with diabetic chronic kidney disease; N18.6 End stage renal disease; E66.9 Obesity, unspecified; Z79.01 Long term (current) use of anticoagulants; Z68.43 Body mass index [BMI] 50.0-59.9, adult; V89.2XXA Person injured in unspecified motor-vehicle accident, traffic, initial encounter
CPT/HCPCS: 31500; 36680; 82947